=== PATIENT | female | born 1995 | race African-American/Black ===

== ENCOUNTER 2017-05-22 17:20 | Emergency (ER) | payer MEDICAID ==
[~2017-05-22] VITALS: Ht 175.3 cm; Wt 65.8 kg
[2017-05-22 17:20] VITALS: BP_SYST 118
--- NOTE | 2017-05-22 17:20 | NUR ---
Patient triaged and placed in waiting room. VSS and patient appears in no acute distress at this time. Accompanied by MOTHER, awaiting available bed, and MD notified of need for MSE.
--- NOTE | 2017-05-22 17:40 | NUR ---
BROUGHT BACK TO BED #2 AND REPORT GIVEN TO DIANE
--- NOTE | 2017-05-22 17:40 | NUR ---
ER at bedside examining patient.
--- NOTE | 2017-05-22 17:42 | NUR ---
Pt presents to ER c/p pain, inflammation, itchiness to L hand. Pt reports she was bitten by spider. Pt denies N/V/D/FEVER/CHEST PAIN/SOB. Pt denies any significant medical history. No acute distress noted. AOX4, NKDA. Mother at bedside.
--- NOTE | 2017-05-22 18:20 | NUR ---
Patient given written and verbal discharge instructions and verbalizes understanding. ER MD discussed with patient the results and treatment provided. Patient in stable condition. ID arm band removed. Rx of Prednisone, Keflex, & Zyrtec given. Patient educated on pain management and to follow up with PMD. Pain Scale 2/10. Opportunity for questions provided and answered.
[2017-05-22 18:22] VITALS: BP_SYST 118
== END 2017-05-22 18:21 | disposition home or self-care (01) ==
LOC: SED 17:20
DX: S60.562A Insect bite (nonvenomous) of left hand, initial encounter (principal); W57.XXXA Bitten or stung by nonvenomous insect and other nonvenomous arthropods, initial encounter; Y93.89 Activity, other specified; Y92.89 Other specified places as the place of occurrence of the external cause; Y99.8 Other external cause status
CPT/HCPCS: 99283

== ENCOUNTER 2017-10-11 15:10 | Emergency (ER) | payer MEDICAID ==
[~2017-10-11] VITALS: Ht 175.3 cm; Wt 68.0 kg
[2017-10-11 15:20] VITALS: BP_SYST 118
[2017-10-11 15:50] VITALS: BP_SYST 118
== END 2017-10-11 15:50 | disposition home or self-care (01) ==
LOC: SED 15:10
DX: O03.9 Complete or unspecified spontaneous abortion without complication (principal); Z3A.01 Less than 8 weeks gestation of pregnancy
CPT/HCPCS: 99283

== ENCOUNTER 2018-04-26 15:35 | Emergency (ER) | payer MEDICAID ==
[~2018-04-26] VITALS: Ht 175.3 cm; Wt 68.0 kg
[2018-04-26 15:35] VITALS: BP_SYST 120
--- NOTE | 2018-04-26 15:40 | NUR ---
Patient to ER bed 5 to gown for evaluation. Side rails up. Report given to Bruno OAKES.
--- NOTE | 2018-04-26 15:48 | NUR ---
ED Riky at bedside for medical evaluation.
--- NOTE | 2018-04-26 15:49 | NUR ---
Urine specimin collected and sent to lab. Hcg positive.
--- NOTE | 2018-04-26 15:50 | NUR ---
Pt presents to ER c/o of urinary urgency, urinary burning, and urinary frequency today. No alleviating or exacerbating factors. The patient reports she went to [facility] urgent [facility] who diagnosed her with UTI and did not give her any prescription. She states she was advised to go to the ED or make an appointment with her primary care physician. Pt's reports LMP was reportedly 03/19/18. Pt denies any other complaints.
--- NOTE | 2018-04-26 15:57 | NUR ---
Dr. Lan at bedside speaking with pt discussing positive urine HCG test.
[2018-04-26 16:04] LABS: BILIRUBIN,URINE NEGATIVE (NEGATIVE); BLOOD, URINE 2+ (NEGATIVE); COLOR,URINE YELLOW (YELLOW); GLUCOSE,URINE NEGATIVE (NEGATIVE); KETONES,URINE NEGATIVE (NEGATIVE); LEUKOCYTE ESTERASE ,URINE NEGATIVE (NEGATIVE); NITRITE, URINE NEGATIVE (NEGATIVE); PROTEIN URINE TRACE (NEGATIVE); UROBILINOGEN,URINE 0.2 (0.2-1.0)
[2018-04-26 16:05] VITALS: BP_SYST 104
--- NOTE | 2018-04-26 16:05 | NUR ---
Patient given written and verbal discharge instructions and verbalizes understanding. ER MD discussed with patient the results and treatment provided. Patient in stable condition. ID arm band removed. Rx of Pyridium, Macrodantin given. Patient educated on pain management and to follow up with PMD. Pain Scale 0/10. Opportunity for questions provided and answered. Medication side effect fact sheet provided.
[2018-04-26 16:07] LABS: CLARITY/URINE SLIGHTLY HAZY (CLEAR)
[2018-04-26 16:16] LABS: WBC,URINE 0-3 /HPF (0-3)
[2018-04-26 16:17] LABS: BACTERIA,URINE FEW /HPF (None Seen); MUCUS,URINE 1+ /LPF (None Seen)
== END 2018-04-26 16:05 | disposition home or self-care (01) ==
LOC: SED 15:35
DX: N39.0 Urinary tract infection, site not specified (principal)
CPT/HCPCS: 81000-TC; 81025; 99283

== ENCOUNTER 2018-05-30 22:05 | Emergency (ER) | payer MEDICAID ==
[~2018-05-30] VITALS: Ht 175.3 cm; Wt 64.4 kg
[2018-05-30 22:13] VITALS: BP_SYST 118
--- NOTE | 2018-05-30 22:20 | NUR ---
Patient to ER bed 8 to gown for evaluation. Side rails up.
--- NOTE | 2018-05-30 22:22 | NUR ---
Pt is 8 weeks , -3 Para-0 A- 2. Pt states she has been nauseous and vomiting for the last two weeks. Pt was advised that N/V may occur in firts trimester by PCP. Pt unable to hold any fluids or solid food down. Pt denies pain, bleeding, and spotting. No other injuries/complaints per patient or noted.
--- NOTE | 2018-05-30 22:23 | NUR ---
ER Dr. Lan at bedside examining patient.
[2018-05-30] MEDS ORDERED: ONDANSETRON 4 MG ODT TAB PO ONE (22:30)
[2018-05-30] MEDS ORDERED: ONDANSETRON 4 MG ODT TAB ONE (22:31)
[2018-05-30 23:17] VITALS: BP_SYST 116
--- NOTE | 2018-05-30 23:17 | NUR ---
Patient given written and verbal discharge instructions and verbalizes understanding. ER MD discussed with patient the results and treatment provided. Patient in stable condition. ID arm band removed. Rx of Zofran and Macrodantin given. Patient educated on pain management and to follow up with PMD. Pain Scale 0. Opportunity for questions provided and answered. Medication side effect fact sheet provided.
[2018-05-30 23:18] LABS: BILIRUBIN,URINE NEGATIVE (NEGATIVE); BLOOD, URINE 2+ (NEGATIVE); CLARITY/URINE CLEAR (CLEAR); COLOR,URINE YELLOW (YELLOW); GLUCOSE,URINE NEGATIVE (NEGATIVE); KETONES,URINE 1+ (NEGATIVE); LEUKOCYTE ESTERASE ,URINE TRACE (NEGATIVE); NITRITE, URINE NEGATIVE (NEGATIVE); PH,URINE 6.5 (5.0-8.0); PROTEIN URINE 1+ (NEGATIVE); UROBILINOGEN,URINE 0.2 (0.2-1.0)
[2018-05-30 23:29] LABS: BACTERIA,URINE FEW /HPF (None Seen); RBC,URINE 20-50 /HPF (0-3)
== END 2018-05-30 23:17 | disposition home or self-care (01) ==
LOC: SED 22:05
DX: O21.8 Other vomiting complicating pregnancy (principal); O23.41 Unspecified infection of urinary tract in pregnancy, first trimester; Z3A.08 8 weeks gestation of pregnancy; Z88.5 Allergy status to narcotic agent
CPT/HCPCS: 81000; 81025; 99283; Q0162

== ENCOUNTER 2018-06-22 21:14 | Emergency (ER) | payer MEDICAID ==
[~2018-06-22] VITALS: Ht 175.3 cm; Wt 70.3 kg
[2018-06-22 21:26] VITALS: BP_SYST 132
--- NOTE | 2018-06-22 21:30 | NUR ---
Patient triaged and placed in waiting room. VSS and patient appears in no acute distress at this time. Accompanied by MOTHER, awaiting available bed, and MD notified of need for MSE.
--- NOTE | 2018-06-22 22:47 | NUR ---
Patient to ER bed 07 for evaluation. Side rails up. Report given to Bebeto OAKES.
--- NOTE | 2018-06-22 23:20 | NUR ---
Patient arrived from home aaox4 and able to verbalize her needs. Complaints of back pain of 6/10 and oliguria. States she was in the ER a few weeks ago for UTI. She was given antibiotics but did not finish the full schedule of meds due to N/V. Patient is + for HCG testing. Breathing is equal and unlabored. Denies any chest pain, chill or fever. She is ambulatory with a steady gait.
[2018-06-22 23:37] LABS: BILIRUBIN,URINE NEGATIVE (NEGATIVE); BLOOD, URINE 1+ (NEGATIVE); CLARITY/URINE CLEAR (CLEAR); COLOR,URINE YELLOW (YELLOW); GLUCOSE,URINE NEGATIVE (NEGATIVE); KETONES,URINE NEGATIVE (NEGATIVE); LEUKOCYTE ESTERASE ,URINE TRACE (NEGATIVE); NITRITE, URINE NEGATIVE (NEGATIVE); PROTEIN URINE NEGATIVE (NEGATIVE); UROBILINOGEN,URINE 0.2 (0.2-1.0)
--- NOTE | 2018-06-22 23:40 | NUR ---
ER at bedside examining patient.
[2018-06-22] MEDS ORDERED: NACL 0.9% 1,000 ML IV ONE (23:45)
[2018-06-22 23:46] LABS: BACTERIA,URINE RARE /HPF (None Seen)
[2018-06-22 23:56] LABS: HCG,QUAL RESULT POSITIVE (NEGATIVE)
--- NOTE | 2018-06-23 00:12 | NUR ---
Pt went to ultrasound in stable condition.
[2018-06-23 00:58] LABS: BASOPHILS # (AUTO) 0.1 K/uL (0.0-0.2); BASOPHILS % (AUTO) 0.9 % (0.0-2.0); EOSINOPHILS # (AUTO) 0.1 K/uL (0.0-0.4); EOSINOPHILS % (AUTO) 0.9 % (0.0-4.0); HEMATOCRIT 34.2 % (36-48); HEMOGLOBIN 11.4 g/dL (12.0-16.0); LYMPHOCYTES # (AUTO) 2.2 K/uL (1.0-5.5); LYMPHOCYTES % (AUTO) 21.2 % (20.5-51.5); MEAN CORPUSCULAR HEMOGLOBIN 30 pg (27-31); MEAN CORPUSCULAR HGB CONC 33 % (32-36); MEAN CORPUSCULAR VOLUME 89 fL (79.0-98.0); MONOCYTES # (AUTO) 0.5 K/uL (0.0-1.0); MONOCYTES % (AUTO) 5.1 % (1.7-9.3); NEUTROPHILS # (AUTO) 7.4 K/uL (1.8-7.7); NEUTROPHILS % (AUTO) 71.9 % (40.0-70.0); PLATELET COUNT (AUTO) 208 K/uL (130-430); RED BLOOD CELL COUNT(AUTO) 3.83 MIL/uL (4.2-6.2); WHITE BLOOD COUNT (AUTO) 10.3 K/uL (4.8-10.8)
[2018-06-23 01:17] LABS: CREATININE 0.55 mg/dL (0.55-1.30); POTASSIUM 3.8 mmol/L (3.5-5.1)
[2018-06-23 01:20] VITALS: BP_SYST 130
--- NOTE | 2018-06-23 01:20 | NUR ---
Patient given written and verbal discharge instructions and verbalizes understanding. ER MD discussed with patient the results and treatment provided. Patient in stable condition. ID arm band removed. IV catheter removed intact and dressing applied, no active bleeding. Rx of Keflex given. Patient educated on pain management and to follow up with PMD. Pain Scale 0/10. Opportunity for questions provided and answered. Medication side effect fact sheet provided.
[2018-06-23 01:24] LABS: ALBUMIN 3.2 g/dL (3.4-4.8); TOTAL BILIRUBIN 0.3 mg/dL (0.0-1.0)
== END 2018-06-23 01:20 | disposition home or self-care (01) ==
LOC: SED 21:14
DX: O23.41 Unspecified infection of urinary tract in pregnancy, first trimester (principal); Z88.5 Allergy status to narcotic agent; Z3A.13 13 weeks gestation of pregnancy
CPT/HCPCS: 36415; 76815; 80053; 81000; 81025; 84703; 85025; 99284; J7030 ×2

== ENCOUNTER 2018-07-15 09:48 | Emergency (ER) | payer MEDICAID ==
[~2018-07-15] VITALS: Ht 175.3 cm; Wt 76.7 kg
[2018-07-15] MEDS ORDERED: NACL 0.9% 1,000 ML IV ONE (09:51)
[2018-07-15 09:57] VITALS: BP_SYST 122
[2018-07-15] MEDS ORDERED: ONDANSETRON HCL 4 MG/2 ML VIAL IVP ONE (10:00)
[2018-07-15 10:33] LABS: BASOPHILS % (AUTO) 0.3 % (0.0-2.0); EOSINOPHILS % (AUTO) 0.3 % (0.0-4.0); HEMATOCRIT 39.3 % (36-48); HEMOGLOBIN 12.9 g/dL (12.0-16.0); LYMPHOCYTES # (AUTO) 0.5 K/uL (1.0-5.5); LYMPHOCYTES % (AUTO) 5.1 % (20.5-51.5); MEAN CORPUSCULAR HEMOGLOBIN 29 pg (27-31); MEAN CORPUSCULAR HGB CONC 33 % (32-36); MEAN CORPUSCULAR VOLUME 87 fL (79.0-98.0); MONOCYTES # (AUTO) 0.2 K/uL (0.0-1.0); NEUTROPHILS # (AUTO) 8.4 K/uL (1.8-7.7); NEUTROPHILS % (AUTO) 92.3 % (40.0-70.0); PLATELET COUNT (AUTO) 205 K/uL (130-430); RED BLOOD CELL COUNT(AUTO) 4.52 MIL/uL (4.2-6.2); RED CELL DISTRIBUTION WIDTH 13.8 % (9.0-15.0); WHITE BLOOD COUNT (AUTO) 9.1 K/uL (4.8-10.8)
[2018-07-15 10:46] LABS: INR 0.9 (0.8-1.2); PROTHROMBIN TIME 9.7 SECS (9.5-12.5)
[2018-07-15 11:09] LABS: CALCIUM 8.7 mg/dL (8.4-11.0); CREATININE 0.64 mg/dL (0.55-1.30)
[2018-07-15 11:29] LABS: BILIRUBIN,URINE NEGATIVE (NEGATIVE); BLOOD, URINE 2+ (NEGATIVE); CLARITY/URINE CLEAR (CLEAR); COLOR,URINE YELLOW (YELLOW); GLUCOSE,URINE NEGATIVE (NEGATIVE); KETONES,URINE NEGATIVE (NEGATIVE); LEUKOCYTE ESTERASE ,URINE NEGATIVE (NEGATIVE); NITRITE, URINE NEGATIVE (NEGATIVE); PROTEIN URINE NEGATIVE (NEGATIVE); UROBILINOGEN,URINE 0.2 (0.2-1.0)
[2018-07-15 11:38] LABS: BACTERIA,URINE FEW /HPF (None Seen); MUCUS,URINE 2+ /LPF (None Seen); WBC,URINE 0-3 /HPF (0-3)
[2018-07-15 11:44] LABS: ALBUMIN 3.3 g/dL (3.4-4.8); TOTAL BILIRUBIN 0.4 mg/dL (0.0-1.0)
[2018-07-15 12:46] VITALS: BP_SYST 122
== END 2018-07-15 12:49 | disposition home or self-care (01) ==
LOC: SED 09:48
DX: O99.612 Diseases of the digestive system complicating pregnancy, second trimester (principal); K52.9 Noninfective gastroenteritis and colitis, unspecified; Z3A.15 15 weeks gestation of pregnancy; Z88.5 Allergy status to narcotic agent
CPT/HCPCS: 36415; 80053; 81000; 82150; 83605; 83690; 84702; 85025; 85610; 85730; 86900; 86901; 87040; 96361; 96374; 99283; J2405; J7030